=== PATIENT | female | born 2000 | race African-American/Black ===

== ENCOUNTER 2021-03-18 19:56 | Emergency (ER) | payer MEDICAID ==
[~2021-03-18] VITALS: Ht 152.4 cm; Wt 54.4 kg
[2021-03-18 20:08] VITALS: BP_SYST 150
[2021-03-18] MEDS ORDERED: LIDOCAINE JELLY 5 ML TUBE ONE (21:02)
[2021-03-18] MEDS ORDERED: BACITRACIN 1 GM OINT TP ONE (21:11)
[2021-03-18] MEDS ORDERED: DIPH-TET-PERTUS Vaccine 0.5 ML VIAL (ADACEL) I.M. ONE (21:15)
[2021-03-18] MEDS ORDERED: BACITRACIN ZINC 15 GM TOPICAL OINTMENT TP ONE (21:15)
[2021-03-18 22:00] VITALS: BP_SYST 150
== END 2021-03-18 22:00 | disposition home or self-care (01) ==
LOC: SED 19:56
DX: S61.041A Puncture wound with foreign body of right thumb without damage to nail, initial encounter (principal); W45.8XXA Other foreign body or object entering through skin, initial encounter; Y93.89 Activity, other specified; Y92.89 Other specified places as the place of occurrence of the external cause; Y99.8 Other external cause status
CPT/HCPCS: 90715; 99284

== ENCOUNTER 2023-04-10 15:33 | Emergency (ER) | payer MEDICAID ==
[~2023-04-10] VITALS: Ht 152.4 cm; Wt 58.1 kg
[2023-04-10 15:40] VITALS: BP_SYST 134
[2023-04-10] MEDS ORDERED: KETOROLAC TROMETHAMINE 30 MG VIAL IVP ONE (16:00)
[2023-04-10] MEDS ORDERED: ONDANSETRON HCL 4 MG/2 ML VIAL IVP ONE (16:00)
[2023-04-10] MEDS ORDERED: NACL 0.9% 1,000 ML IV ONE (16:00)
[2023-04-10 16:40] LABS: ALBUMIN 3.7 g/dL (3.4-4.8); CREATININE 0.66 mg/dL (0.55-1.30); TOTAL BILIRUBIN 0.7 mg/dL (0.0-1.0)
[2023-04-10 16:42] LABS: BASOPHILS % (AUTO) 0.1 % (0.0-2.0); EOSINOPHILS % (AUTO) 0.1 % (0.0-4.0); HEMOGLOBIN 12.3 g/dL (12.0-16.0); LYMPHOCYTES # (AUTO) 0.9 K/uL (1.0-5.5); MEAN CORPUSCULAR HEMOGLOBIN 27 pg (27-31); MEAN CORPUSCULAR HGB CONC 32 % (32-36); MEAN CORPUSCULAR VOLUME 83 fL (79.0-98.0); MONOCYTES # (AUTO) 1.5 K/uL (0.0-1.0); MONOCYTES % (AUTO) 8.1 % (1.7-9.3); NEUTROPHILS # (AUTO) 16.3 K/uL (1.8-7.7); NEUTROPHILS % (AUTO) 86.7 % (40.0-70.0); PLATELET COUNT (AUTO) 266 K/uL (130-430); RED CELL DISTRIBUTION WIDTH 16.1 % (9.0-15.0); WHITE BLOOD COUNT (AUTO) 18.8 K/uL (4.8-10.8)
[2023-04-10] MEDS ORDERED: SUCR1TAB2 PO (16:59)
[2023-04-10] MEDS ORDERED: ANT30 PO (16:59)
[2023-04-10] MEDS ORDERED: FAMO-132 PO (16:59)
[2023-04-10] MEDS ORDERED: ONDA-8 TL (16:59)
[2023-04-10] MEDS ORDERED: AMOX-520 PO (16:59)
[2023-04-10] MEDS ORDERED: HYDR-3927 PO (16:59)
[2023-04-10] MEDS ORDERED: MORPHINE 4 MG INJ. 4 MG/ML VIAL IVP ONE (17:00)
[2023-04-10 17:56] VITALS: BP_SYST 110
== END 2023-04-10 17:56 | disposition home or self-care (01) ==
LOC: SED 15:33
DX: J02.0 Streptococcal pharyngitis (principal); K29.00 Acute gastritis without bleeding; R11.10 Vomiting, unspecified; J02.9 Acute pharyngitis, unspecified; R10.13 Epigastric pain; Z79.899 Other long term (current) drug therapy; Z20.822 Contact with and (suspected) exposure to COVID-19
CPT/HCPCS: 99284; 96374; 96361; 96375; 87426; 80053; 85025; 36415; 81025; 87804 ×2; J1885; J2405; J7030

== ENCOUNTER 2023-04-14 12:37 | Emergency (ER) | payer MEDICAID ==
[~2023-04-14] VITALS: Ht 152.4 cm; Wt 56.7 kg
[~2023-04-14 12:37] MED LIST: AMOX-520 PO; ANT30 PO; FAMO-132 PO; HYDR-3927 PO; ONDA-8 TL; SUCR1TAB2 PO
[2023-04-14 12:52] VITALS: BP_SYST 121; PULSE 85; RESP 16; TEMP 97.8; O2SAT 99
[2023-04-14] MEDS ORDERED: ONDANSETRON HCL 4 MG/2 ML VIAL IVP ONE (13:00)
[2023-04-14] MEDS ORDERED: KETOROLAC TROMETHAMINE 30 MG VIAL IVP ONE (13:00)
[2023-04-14] MEDS ORDERED: ONDANSETRON 4 MG ODT TAB PO ONE (13:00)
[2023-04-14] MEDS ORDERED: KETOROLAC TROMETHAMINE 60 MG/2 ML VIAL IM ONE (13:00)
[2023-04-14 13:26] LABS: BASOPHILS % (AUTO) 0.7 % (0.0-2.0); EOSINOPHILS # (AUTO) 0.1 K/uL (0.0-0.4); EOSINOPHILS % (AUTO) 2.7 % (0.0-4.0); HEMATOCRIT 37.3 % (36-48); LYMPHOCYTES # (AUTO) 1.6 K/uL (1.0-5.5); LYMPHOCYTES % (AUTO) 29.2 % (20.5-51.5); MEAN CORPUSCULAR HEMOGLOBIN 27 pg (27-31); MEAN CORPUSCULAR HGB CONC 32 % (32-36); MEAN CORPUSCULAR VOLUME 83 fL (79.0-98.0); MONOCYTES # (AUTO) 0.6 K/uL (0.0-1.0); NEUTROPHILS # (AUTO) 3.1 K/uL (1.8-7.7); NEUTROPHILS % (AUTO) 56.4 % (40.0-70.0); PLATELET COUNT (AUTO) 333 K/uL (130-430); RED BLOOD CELL COUNT(AUTO) 4.51 MIL/uL (4.2-6.2); WHITE BLOOD COUNT (AUTO) 5.4 K/uL (4.8-10.8)
[2023-04-14 13:35] LABS: CALCIUM 9.1 mg/dL (8.4-11.0); CREATININE 0.71 mg/dL (0.55-1.30)
[2023-04-14 13:40] LABS: ALBUMIN 3.5 g/dL (3.4-4.8); TOTAL BILIRUBIN 0.3 mg/dL (0.0-1.0)
[2023-04-14 13:51] LABS: BILIRUBIN,URINE NEGATIVE (NEGATIVE); BLOOD, URINE NEGATIVE (NEGATIVE); CLARITY/URINE CLEAR (CLEAR); COLOR,URINE YELLOW (YELLOW); GLUCOSE,URINE NEGATIVE (NEGATIVE); KETONES,URINE NEGATIVE (NEGATIVE); LEUKOCYTE ESTERASE ,URINE NEGATIVE (NEGATIVE); NITRITE, URINE NEGATIVE (NEGATIVE); PH,URINE 7.5 (5.0-8.0); PROTEIN URINE NEGATIVE (NEGATIVE)
[2023-04-14 15:39] VITALS: BP_SYST 123; PULSE 72; RESP 19; TEMP 98.2; O2SAT 98
== END 2023-04-14 15:39 | disposition home or self-care (01) ==
LOC: SED 12:37
DX: K29.70 Gastritis, unspecified, without bleeding (principal); R10.10 Upper abdominal pain, unspecified; R11.10 Vomiting, unspecified; Z79.899 Other long term (current) drug therapy
CPT/HCPCS: 99285; 76700; 80053; 82150; 84703; 83690; 85025; 36415; 81025; 96372; 83605; 81003; Q0162; J1885

== ENCOUNTER 2023-10-20 17:22 | Emergency (ER) | payer MEDICAID ==
[~2023-10-20] VITALS: Ht 152.4 cm; Wt 66.2 kg
[2023-10-20 17:26] VITALS: BP_SYST 151; PULSE 95; RESP 22; TEMP 98.3; O2SAT 98
[2023-10-20 18:24] LABS: ANION GAP 9 (5-15); CALCIUM 8.7 mg/dL (8.4-11.0); CARBON DIOXIDE 27 mmol/L (23-29); CHLORIDE 104 mmol/L (98-107); CREATININE 0.68 mg/dL (0.55-1.30); GFR AFRICAN AMERICAN 139 mL/min (>90); GFR NON AFRICAN-AMERICAN 115 mL/min (>90); GLUCOSE 90 mg/dL (74-106); POTASSIUM 4.2 mmol/L (3.5-5.1); SODIUM SERUM 140 mmol/L (136-145); UREA NITROGEN, BLOOD 15 mg/dL (8-21)
[2023-10-20 19:00] LABS: BASOPHILS # (AUTO) 0.1 K/uL (0.0-0.2); BASOPHILS % (AUTO) 0.6 % (0.0-2.0); EOSINOPHILS # (AUTO) 0.1 K/uL (0.0-0.4); EOSINOPHILS % (AUTO) 1.5 % (0.0-4.0); HEMATOCRIT 42.1 % (36-48); LYMPHOCYTES # (AUTO) 1.9 K/uL (1.0-5.5); LYMPHOCYTES % (AUTO) 20.3 % (20.5-51.5); MEAN CORPUSCULAR HEMOGLOBIN 28 pg (27-31); MEAN CORPUSCULAR HGB CONC 33 % (32-36); MEAN CORPUSCULAR VOLUME 85 fL (79.0-98.0); MONOCYTES # (AUTO) 0.8 K/uL (0.0-1.0); MONOCYTES % (AUTO) 7.9 % (1.7-9.3); NEUTROPHILS # (AUTO) 6.6 K/uL (1.8-7.7); NEUTROPHILS % (AUTO) 69.7 % (40.0-70.0); PLATELET COUNT (AUTO) 313 K/uL (130-430); RED BLOOD CELL COUNT(AUTO) 4.93 MIL/uL (4.2-6.2); RED CELL DISTRIBUTION WIDTH 15.5 % (9.0-15.0); WHITE BLOOD COUNT (AUTO) 9.5 K/uL (4.8-10.8)
[2023-10-20 19:52] VITALS: BP_SYST 151; PULSE 95; RESP 22; TEMP 98.3; O2SAT 98
== END 2023-10-20 19:52 | disposition home or self-care (01) ==
LOC: SED 17:22
DX: R07.9 Chest pain, unspecified (principal); R06.02 Shortness of breath; Z79.899 Other long term (current) drug therapy
CPT/HCPCS: 36415; 71045; 80048; 84484; 85025; 85379; 93005; 99285

== ENCOUNTER 2024-07-14 14:37 | Emergency (ER) | payer MEDICAID ==
[~2024-07-14] VITALS: Ht 154.9 cm; Wt 82.6 kg
[~2024-07-14 14:37] MED LIST changes: +CLOT15CR5 TP
[2024-07-14 14:50] VITALS: BP_SYST 151; PULSE 60; RESP 19; TEMP 98.7; O2SAT 98
[2024-07-14 15:41] LABS: BASOPHILS # (AUTO) 0.1 K/uL (0.0-0.2); BASOPHILS % (AUTO) 0.6 % (0.0-2.0); EOSINOPHILS # (AUTO) 0.3 K/uL (0.0-0.4); EOSINOPHILS % (AUTO) 3.9 % (0.0-4.0); HEMATOCRIT 41.6 % (36-48); HEMOGLOBIN 14.2 g/dL (12.0-16.0); LYMPHOCYTES # (AUTO) 1.7 K/uL (1.0-5.5); LYMPHOCYTES % (AUTO) 20.3 % (20.5-51.5); MEAN CORPUSCULAR HEMOGLOBIN 31 pg (27-31); MEAN CORPUSCULAR HGB CONC 34 % (32-36); MEAN CORPUSCULAR VOLUME 89 fL (79.0-98.0); MONOCYTES # (AUTO) 0.6 K/uL (0.0-1.0); MONOCYTES % (AUTO) 7.7 % (1.7-9.3); NEUTROPHILS # (AUTO) 5.7 K/uL (1.8-7.7); NEUTROPHILS % (AUTO) 67.5 % (40.0-70.0); PLATELET COUNT (AUTO) 273 K/uL (130-430); RED BLOOD CELL COUNT(AUTO) 4.65 MIL/uL (4.2-6.2); WHITE BLOOD COUNT (AUTO) 8.4 K/uL (4.8-10.8)
[2024-07-14 16:13] LABS: CALCIUM 9.8 mg/dL (8.4-11.0); CREATININE 0.79 mg/dL (0.55-1.30); TOTAL BILIRUBIN 0.2 mg/dL (0.0-1.0); TOTAL PROTEIN, SERUM 8.5 g/dL (6.4-8.3)
[2024-07-14 16:28] LABS: BILIRUBIN,DIRECT 0.1 mg/dL (0.0-0.3)
[2024-07-14] MEDS ORDERED: OMEP20CA15 PO (16:50)
[2024-07-14] MEDS ORDERED: ONDA-8 TL (16:50)
[2024-07-14 16:53] LABS: BILIRUBIN,URINE NEGATIVE (NEGATIVE); BLOOD, URINE 2+ (NEGATIVE); COLOR,URINE YELLOW (YELLOW); GLUCOSE,URINE NEGATIVE (NEGATIVE); KETONES,URINE NEGATIVE (NEGATIVE); LEUKOCYTE ESTERASE ,URINE 2+ (NEGATIVE); NITRITE, URINE NEGATIVE (NEGATIVE); PROTEIN URINE NEGATIVE (NEGATIVE); UROBILINOGEN,URINE 0.2 (0.2-1.0)
[2024-07-14 17:00] VITALS: BP_SYST 140; PULSE 80; RESP 20; TEMP 97.7; O2SAT 99
[2024-07-14 17:20] LABS: CLARITY/URINE HAZY (CLEAR)
[2024-07-14 18:19] LABS: BACTERIA,URINE MODERATE /HPF (None Seen)
[2024-07-14 18:20] LABS: MUCUS,URINE 2+ /LPF (None Seen); URINE AMORPHOUS URATE 1+ /HPF (None Seen)
== END 2024-07-14 17:00 | disposition home or self-care (01) ==
LOC: SED 14:37
DX: K29.00 Acute gastritis without bleeding (principal); R11.2 Nausea with vomiting, unspecified
CPT/HCPCS: 36415; 80048; 80076; 81000; 81001; 81015; 82150; 83605; 83690; 85025; 85610; 85730; 87086; 99284